=== PATIENT | female | born 1945 | race Two or more races ===

== ENCOUNTER 2024-04-23 12:40 | Inpatient (IN) | payer MEDICARE, MEDICAID ==
[~2024-04-23] VITALS: Ht 154.9 cm; Wt 77.4 kg
[2024-04-23 13:39] LABS: Basophils # (auto) 0.1 10 ^3/uL (0-0.2); Basophils % (auto) 0.8 % (0.0-2.0); Eosinophils # (auto) 0 10 ^3/uL (0-0.8); Eosinophils % (auto) 0.6 % (0.0-7.0); Hematocrit 38.8 % (36.0-46.0); Hemoglobin 13.2 g/dL (12.2-16.2); Lymphocytes # (auto) 2.6 10 ^3/uL (0.4-5.4); Lymphocytes % (auto) 34.9 % (10.0-50.0); Mean Corpuscular Hemoglobin 31.9 pg (28.0-32.0); Mean Corpuscular Hgb Conc. 33.9 g/dL (32.0-36.0); Mean Corpuscular Volume 94.1 fL (80.0-100.0); Monocytes # (auto) 0.3 10 ^3/uL (0-1.3); Monocytes % (auto) 3.4 % (0.0-12.0); Neutrophils # (auto) 4.5 10 ^3/uL (1.6-8.6); Neutrophils % (auto) 60.3 % (37.0-80.0); Nucleated Red Blood Cells % 0.1 %; Platelet Count (auto) 310 10^3/uL (140-450); Red Blood Cells 4.12 10^6/uL (4.0-5.20); Red Cell Distribution Width 14.5 % (11.8-14.3); White Blood Cell 7.5 10^3/uL (4.4-10.8)
[2024-04-23 13:53] LABS: Chloride 101 mmol/L (98-107); Potassium 4.3 mmol/L (3.5-5.1); Sodium 133 mmol/L (136-145)
[2024-04-23 13:54] LABS: Anion Gap 8 (5-15); Calcium 9.8 mg/dL (8.7-10.4); Carbon Dioxide 24 mmol/L (20-30)
[2024-04-23 13:59] LABS: BUN/Creatinine Ratio 15.6 (10.0-20.0); Blood Urea Nitrogen 21 mg/dL (9-23); Glucose 206 mg/dL (74-106)
[2024-04-23] MEDS: cloNIDine HCL 0.1 MG TAB PO ONE (16:06)
[2024-04-23] MEDS ORDERED: DOCUSATE SOD 100 MG CAP PO PRN (16:45)
[2024-04-23] MEDS ORDERED: ONDANSETRON HCL 4 MG/2 ML VIAL IV PRN (16:45)
[2024-04-23] MEDS ORDERED: ACETAMINOPHEN 325 MG TAB PO PRN (16:45)
[2024-04-23] MEDS ORDERED: NITROGLYCERIN 0.4 MG SL TAB SL PRN (16:45)
[2024-04-23] MEDS ORDERED: HYDROcodone-ACET 5/325MG TAB PO PRN (16:45)
[2024-04-23] MEDS ORDERED: MORPHINE SULFATE INJ 2 MG/ml SYRG IV PRN (16:45)
[2024-04-23] MEDS ORDERED: DICL75TA4 PO (16:49)
[2024-04-23] MEDS ORDERED: BACL10TA PO (16:49)
[2024-04-23] MEDS ORDERED: LISI10TA34 PO (16:49)
[2024-04-23] MEDS ORDERED: GABA-1250 PO (16:49)
[2024-04-23] MEDS ORDERED: DEXTROSE (50%) 50ML SYRG IV PRN (17:00)
[2024-04-23 17:09] LABS: Urine Bacteria None Seen /hpf (None Seen)
[2024-04-23 17:15] LABS: Urine Blood Negative /uL (Negative); Urine Clarity Clear (Clear); Urine Color Light-Yellow (Yellow); Urine Hyaline Cast FEW /lpf (0 - 2); Urine Mucus FEW (None Seen); Urine Protein, UAD Negative (Negative); Urine Specific Gravity 1.016 (1.001-1.035); Urine Urobilinogen Normal (Negative); Urine WBC 22 /hpf (0 - 5)
[2024-04-23] MEDS: ACCU-CHEK COMFORT CURVE STRIP VI SCH (18:48)
[2024-04-23] MEDS: InsuLIN REG 1unit/0.01ml Soln (100units/ml) SC SCH ×2 (18:48→22:00)
[2024-04-23 20:56] VITALS: PULSE 90; RESP 16; O2SAT 94
[2024-04-23] MEDS: GABAPENTIN 300 MG CAP PO SCH (22:00)
[2024-04-23] MEDS: DICLOFENAC SODIUM 75 MG PO SCH (22:00)
[2024-04-23] MEDS: BACLOFEN 10 MG TAB PO SCH (22:00)
[2024-04-24] VITALS (7 sets, daily range): BP systolic 92–161; BP diastolic 45–90; PULSE 68–82; RESP 16–18; TEMP 97–98.3; O2SAT 94–96
[2024-04-24 06:10] LABS: Basophils # (auto) 0.1 10 ^3/uL (0-0.2); Eosinophils # (auto) 0.1 10 ^3/uL (0-0.8); Eosinophils % (auto) 1.6 % (0.0-7.0); Hematocrit 36.7 % (36.0-46.0); Hemoglobin 12.5 g/dL (12.2-16.2); Lymphocytes # (auto) 2.9 10 ^3/uL (0.4-5.4); Lymphocytes % (auto) 40.2 % (10.0-50.0); Mean Corpuscular Hemoglobin 32.2 pg (28.0-32.0); Mean Corpuscular Hgb Conc. 34.1 g/dL (32.0-36.0); Mean Corpuscular Volume 94.5 fL (80.0-100.0); Monocytes # (auto) 0.5 10 ^3/uL (0-1.3); Monocytes % (auto) 6.9 % (0.0-12.0); Neutrophils # (auto) 3.6 10 ^3/uL (1.6-8.6); Neutrophils % (auto) 50.3 % (37.0-80.0); Nucleated Red Blood Cells % 0.1 %; Platelet Count (auto) 285 10^3/uL (140-450); Red Blood Cells 3.89 10^6/uL (4.0-5.20); Red Cell Distribution Width 14.3 % (11.8-14.3); White Blood Cell 7.2 10^3/uL (4.4-10.8)
[2024-04-24] MEDS: hydrALAZINE HCL 20 MG/ML VL IV PRN (06:25)
[2024-04-24 06:26] LABS: Alanine Aminotransferase 17 U/L (7-40); Albumin 3.8 g/dL (3.2-4.8); Alkaline Phosphatase 98 U/L (46-116); Anion Gap 6 (5-15); Aspartate Aminotransferase 16 U/L (13-40); BUN/Creatinine Ratio 19.3 (10.0-20.0); Blood Urea Nitrogen 21 mg/dL (9-23); Calcium 9.3 mg/dL (8.7-10.4); Carbon Dioxide 24 mmol/L (20-30); Chloride 104 mmol/L (98-107); Glucose 97 mg/dL (74-106); Potassium 4.2 mmol/L (3.5-5.1); Sodium 134 mmol/L (136-145)
[2024-04-24 06:27] LABS: Bilirubin, Total 0.3 mg/dL (0.2-1.0); Total Protein 6.1 g/dL (5.7-8.2)
[2024-04-24 09:41] LABS: Triglycerides 152 mg/dL (< 150)
[2024-04-24 09:42] LABS: LDL Cholesterol 95 mg/dL (< 100)
[2024-04-24 09:43] LABS: Cholesterol 193 mg/dL (< 200); HDL Cholesterol 71 mg/dL (40-59)
[2024-04-24 09:50] LABS: Amphetamine Screen, Urine Neg (NEGATIVE); Barbiturate Scree,Urine Neg (NEGATIVE); Benzodiazephine Screen, Urine Neg (NEGATIVE); Cannabinoid Screen, Urine Neg (NEGATIVE); Cocaine Screen, Urine Neg (NEGATIVE); Opiate Scree,Urine Neg (NEGATIVE); Phencyclidine Screen, Urine Neg (NEGATIVE)
[2024-04-24] MEDS: LISINOPRIL 5 MG TAB PO SCH (10:20)
[2024-04-24] MEDS: LISINOPRIL 5 MG TAB PO ONE (14:00)
[2024-04-24] MEDS ORDERED: LORazepam 2MG/ML-1ML VIAL IV ONE (14:00)
[2024-04-24] MEDS: DULoxetine HCL 30 MG CAP PO ONE (16:03)
[2024-04-24] MEDS: cefTRIAXone 1GM/50ML D5W 50 ML IV ONE (16:03)
[2024-04-24] MEDS: DULoxetine HCL 30 MG CAP PO SCH (21:33)
[2024-04-25 01:00] VITALS: BP 119/60; PULSE 85; RESP 18; TEMP 98.1; O2SAT 93
[2024-04-25 05:00] VITALS: BP 123/68; PULSE 79; RESP 18; TEMP 98.2; O2SAT 95
[2024-04-25 06:08] LABS: Anion Gap 7 (5-15); Calcium 9.5 mg/dL (8.7-10.4); Carbon Dioxide 23 mmol/L (20-30); Chloride 107 mmol/L (98-107); Potassium 4.9 mmol/L (3.5-5.1); Sodium 137 mmol/L (136-145)
[2024-04-25 06:15] LABS: BUN/Creatinine Ratio 14.9 (10.0-20.0); Blood Urea Nitrogen 14 mg/dL (9-23); Glucose 107 mg/dL (74-106)
[2024-04-25 06:57] LABS: Basophils # (auto) 0.1 10 ^3/uL (0-0.2); Basophils % (auto) 1.2 % (0.0-2.0); Eosinophils # (auto) 0.1 10 ^3/uL (0-0.8); Eosinophils % (auto) 1.2 % (0.0-7.0); Lymphocytes # (auto) 2.4 10 ^3/uL (0.4-5.4); Lymphocytes % (auto) 40.9 % (10.0-50.0); Mean Corpuscular Hemoglobin 32.6 pg (28.0-32.0); Mean Corpuscular Hgb Conc. 34.3 g/dL (32.0-36.0); Monocytes # (auto) 0.3 10 ^3/uL (0-1.3); Monocytes % (auto) 5.5 % (0.0-12.0); Neutrophils % (auto) 51.2 % (37.0-80.0); Nucleated Red Blood Cells % 0.1 %; Platelet Count (auto) 298 10^3/uL (140-450); Red Blood Cells 4.01 10^6/uL (4.0-5.20); Red Cell Distribution Width 14.4 % (11.8-14.3)
[2024-04-25 08:40] LABS: Erythrocyte Sedimentation Rate 4 mm/hr (0-20)
[2024-04-25 09:00] VITALS: BP 119/58; PULSE 78; RESP 16; TEMP 98; O2SAT 90
[2024-04-25] MEDS: cefTRIAXone 1GM/50ML D5W 50 ML IV SCH (09:50)
[2024-04-25] MEDS: LISINOPRIL 20 MG TAB PO SCH (09:51)
[2024-04-25 13:00] VITALS: BP 128/70; PULSE 74; RESP 17; TEMP 98.1; O2SAT 95
[2024-04-25 16:39] VITALS: BP 124/52
[2024-04-25 16:55] VITALS: BP 143/84; PULSE 89; RESP 16; TEMP 97.9; O2SAT 91
== END 2024-04-25 17:53 | disposition home or self-care (01) | DRG 304 ==
LOC: ER 12:40 → TELE 16:49 → TELE-WESTW 22:19 → WEST WING 04-24 17:08
PROVIDERS: ADMIT Nurse Practitioner Family; ATTEND Internal Medicine
DX: I16.0 Hypertensive urgency (principal); N17.0 Acute kidney failure with tubular necrosis; N39.0 Urinary tract infection, site not specified; M47.812 Spondylosis without myelopathy or radiculopathy, cervical region; R73.9 Hyperglycemia, unspecified; M79.7 Fibromyalgia; M06.9 Rheumatoid arthritis, unspecified; I10 Essential (primary) hypertension; E66.01 Morbid (severe) obesity due to excess calories; Z82.49 Family history of ischemic heart disease and other diseases of the circulatory system; Z68.32 Body mass index [BMI] 32.0-32.9, adult; Z90.710 Acquired absence of both cervix and uterus
CPT/HCPCS: 36415; 70450; 71045; 76775; 80048; 80053; 80061; 80307; 81001; 82306; 82607; 82962; 83036; 84484; 85025; 85652; 96372; G0378; J1815

== ENCOUNTER → 2024-10-29 | Outpatient (CLI) | payer MEDICARE, MEDICAID ==
[~2024-10-29] MED LIST: BACL10TA PO; DICL75TA4 PO; GABA-1250 PO; LISI10TA34 PO
[2024-10-29 15:43] LABS: LDL Cholesterol 98 mg/dL (< 100)
[2024-10-29 15:47] LABS: Cholesterol 218 mg/dL (< 200); HDL Cholesterol 87 mg/dL (40-59); Triglycerides 174 mg/dL (< 150)
== END | disposition home or self-care (01) ==
LOC: LAB 09:13
PROVIDERS: ATTEND Internal Medicine
DX: I10 Essential (primary) hypertension (principal); E55.9 Vitamin D deficiency, unspecified; R73.9 Hyperglycemia, unspecified; Z79.899 Other long term (current) drug therapy
CPT/HCPCS: 36415; 80061; 82306; 83036

== ENCOUNTER → 2024-11-15 | Outpatient (CLI) | payer MEDICARE, MEDICAID ==
[~2024-11-15] MED LIST changes: +ALL100T PO; +CHOLCAP4 PO; +COLC1CAP PO; +HYDR-4902 PO; +LACT10SO3 PO; +NIFE1TAB31 PO; +VENL1TAB99 PO
[2024-11-15 10:31] LABS: Basophils # (auto) 0.1 10 ^3/uL (0-0.2); Basophils % (auto) 1.3 % (0.0-2.0); Eosinophils # (auto) 0 10 ^3/uL (0-0.8); Eosinophils % (auto) 0.6 % (0.0-7.0); Hematocrit 41.4 % (36.0-46.0); Lymphocytes # (auto) 2.6 10 ^3/uL (0.4-5.4); Lymphocytes % (auto) 37.8 % (10.0-50.0); Mean Corpuscular Hemoglobin 31.4 pg (28.0-32.0); Mean Corpuscular Hgb Conc. 33.9 g/dL (32.0-36.0); Mean Corpuscular Volume 92.7 fL (80.0-100.0); Monocytes # (auto) 0.3 10 ^3/uL (0-1.3); Monocytes % (auto) 4.3 % (0.0-12.0); Neutrophils # (auto) 3.9 10 ^3/uL (1.6-8.6); Nucleated Red Blood Cells % 0.1 %; Platelet Count (auto) 272 10^3/uL (140-450); Red Blood Cells 4.47 10^6/uL (4.0-5.20); Red Cell Distribution Width 14.8 % (11.8-14.3); White Blood Cell 6.9 10^3/uL (4.4-10.8)
[2024-11-15 11:09] LABS: Erythrocyte Sedimentation Rate 8 mm/hr (0-20)
[2024-11-15 11:11] LABS: Alanine Aminotransferase 13 U/L (7-40); Alkaline Phosphatase 108 U/L (46-116); Anion Gap 5 (5-15); Aspartate Aminotransferase 20 U/L (13-40); BUN/Creatinine Ratio 14.6 (10.0-20.0); Blood Urea Nitrogen 18 mg/dL (9-23); CRP High Sensitivity 0.93 mg/dL (<1.0); Carbon Dioxide 24 mmol/L (20-31); GFR African American 55 mL/min; GFR Non-African American 45 mL/min; Potassium 4.8 mmol/L (3.5-5.1); Sodium 137 mmol/L (136-145); Total Protein 7.8 g/dL (5.7-8.2)
[2024-11-15 11:12] LABS: Albumin 4.9 g/dL (3.2-4.8); Bilirubin, Total 0.7 mg/dL (0.2-1.0); Calcium 10.6 mg/dL (8.7-10.4); Chloride 108 mmol/L (98-107); Glucose 109 mg/dL (74-106); Phosphorus 3.9 mg/dL (2.4-5.1)
[2024-11-15 12:41] LABS: Uric Acid 8.2 mg/dL (3.1-7.8)
[2024-11-16 08:07] LABS: Hepatitis B Core Total Antibod Negative (Negative)
[2024-11-18 10:29] LABS: Hepatitis A Ab IgM Negative; Hepatitis B Core IgM Negative (Negative); Hepatitis B Surface Antibody Negative (Negative); Hepatitis B Surface Antigen Negative (Negative); Hepatitis C Antibody Negative (Negative)
[2024-11-18 14:06] LABS: CCP IgG/IgA Antibody 5 units (0-19)
[2024-11-20 15:07] LABS: HLA B 27 Disease Association Negative (.)
== END | disposition home or self-care (01) ==
LOC: LAB 09:52
PROVIDERS: ATTEND Internal Medicine Rheumatology
DX: M06.9 Rheumatoid arthritis, unspecified (principal); L40.50 Arthropathic psoriasis, unspecified; E03.9 Hypothyroidism, unspecified; R53.83 Other fatigue; Z79.899 Other long term (current) drug therapy
CPT/HCPCS: 36415; 80053; 80069; 84443; 84550; 85025; 85652; 86141; 86200; 86705; 86706; 86709; 86803; 86812; 87340

== ENCOUNTER → 2025-01-11 | Day surgery (SDC) | payer MEDICARE, MEDICAID ==
[2025-01-09 15:53] LABS: Basophils # (auto) 0.1 10 ^3/uL (0-0.2); Eosinophils # (auto) 0 10 ^3/uL (0-0.8); Eosinophils % (auto) 0.6 % (0.0-7.0); Hematocrit 38.8 % (36.0-46.0); Hemoglobin 13.4 g/dL (12.2-16.2); Lymphocytes # (auto) 2.2 10 ^3/uL (0.4-5.4); Lymphocytes % (auto) 29.3 % (10.0-50.0); Mean Corpuscular Hemoglobin 31.8 pg (28.0-32.0); Mean Corpuscular Hgb Conc. 34.7 g/dL (32.0-36.0); Mean Corpuscular Volume 91.6 fL (80.0-100.0); Monocytes # (auto) 0.3 10 ^3/uL (0-1.3); Monocytes % (auto) 4.5 % (0.0-12.0); Neutrophils # (auto) 4.9 10 ^3/uL (1.6-8.6); Neutrophils % (auto) 64.6 % (37.0-80.0); Nucleated Red Blood Cells % 0.1 %; Platelet Count (auto) 295 10^3/uL (140-450); Red Blood Cells 4.23 10^6/uL (4.0-5.20); Red Cell Distribution Width 15.7 % (11.8-14.3); White Blood Cell 7.5 10^3/uL (4.4-10.8)
[2025-01-09 16:10] LABS: INR 0.91 (0.9-1.15); Partial Thromboplastin Time 27.1 SEC (24.5-34.5); Prothrombin Time 9.7 sec (9.3-11.8)
[2025-01-09 16:23] LABS: Alanine Aminotransferase 17 U/L (7-40); Albumin 4.7 g/dL (3.2-4.8); Alkaline Phosphatase 95 U/L (46-116); Anion Gap 8 (5-15); Aspartate Aminotransferase 15 U/L (13-40); BUN/Creatinine Ratio 27.7 (10.0-20.0); Calcium 10.3 mg/dL (8.7-10.4); Carbon Dioxide 25 mmol/L (20-31); Chloride 104 mmol/L (98-107); Sodium 137 mmol/L (136-145); Total Protein 7.3 g/dL (5.7-8.2)
[2025-01-09 16:24] LABS: Bilirubin, Total 0.4 mg/dL (0.2-1.0); Blood Urea Nitrogen 26 mg/dL (9-23); Glucose 107 mg/dL (74-106)
[~2025-01-11] VITALS: Ht 157.5 cm; Wt 75.7 kg
[~2025-01-11] MED LIST changes: -DICL75TA4 PO
[2025-01-11] MEDS: fentaNYL CITRATE 100 MCG/2 ML VL ONE (13:17)
[2025-01-11] MEDS: MIDAZOLAM HCL 2MG/2ML 2ml VIAL (1mg/ml) ONE (13:17)
--- NOTE | 2025-01-11 13:25 | DVHNC2 ---
Procedure - PROCEDURE DATE: JANUARY 11, 2025 PROCEDURE PERFORMED BY: Balwinder Gillespie MD REFERRING PROVIDER: Dr Jose Carlos Yu PROCEDURE PERFORMED: 1. ESOPHAGOGASTRODUODENOSCOPY WITH MODERATE SEDATION 2. ESOPHAGOGASTRODUODENOSCOPY WITH BIOPSY PRE-PROCEDURE DIAGNOSIS: 1. ABNORMAL IMAGING OF THE GI TRACT POSTPROCEDURE DIAGNOSIS: 1. MILD EROSIVE GASTRITIS 2. 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 HIATAL HERNIA 4. EROSIVE ESOPHAGITIS INDICATIONS FOR PROCEDURE: The patient is a 79-year-old female with CT scan showing abnormal imaging at the GE junction. EGD is warranted for evaluation. MEDICATIONS USED: 4mg of Versed and 50 mcg of the fentanyl IV was given in incremental doses DETAILS OF THE PROCEDURE: Informed consent was obtained after risks, benefits, and alternatives, were discussed at length with the patient. The patient gave consent to the procedure as well as some medication used for sedation. The patient was placed in the left lateral decubitus . An Olympus endoscope was inserted into the oropharynx advanced into the esophagus, then into the stomach, then into the duodenal bulb and duodenum. The scope was then withdrawn. The duodenal bulb and duodenum showed no abnormalities. The scope was then withdrawn. The stomach showed mild gastritis biopsies were taken of the body and antrum. Retroflexion showed a small amount of retained gastric contents. The patient had a small hiatal hernia the scope was then withdrawn. The Z-line was at 36 cm. The patient appeared to have a peptic stricture with narrowing of the GE junction. This likely corresponds to the findings on CT scan. There was no masses seen. Patient had erosive esophagitis. There was a 2 cm hiatal hernia seen. The scope was then withdrawn in the procedure completed the patient tolerated the procedure well IMPRESSION: 1. Erosive esophagitis and erosive gastritis 2. Small hiatal hernia 3. Peptic stricture at the GE junction versus ring, corresponding to abnormality seen on CT scan. No evidence of mass RECOMMENDATION: 1. Anti-reflux precautions 2. Proton pump inhibitor twice daily 30 minutes before breakfast and dinner 3. Consider further workup if the patient's symptoms persist or worsen 4. Consider repeat EGD if the patient has worsening dysphagia, food impaction, anemia or other 5. Follow up with me in clinic for procedure pathology results 6. Chew food thoroughly I WOULD LIKE TO THANK DR YU FOR THIS REFERRAL BALWINDER GILLESPIE MD January 11, 2025 13:25
[2025-01-11 13:40] VITALS: TEMP 98.1
[2025-01-11 14:17] VITALS: BP 128/75; PULSE 84; RESP 12; O2SAT 95
== END | disposition home or self-care (01) ==
LOC: GI 11:10
PROVIDERS: ATTEND Specialist
DX: R93.3 Abnormal findings on diagnostic imaging of other parts of digestive tract (principal); K44.9 Diaphragmatic hernia without obstruction or gangrene; K29.50 Unspecified chronic gastritis without bleeding; K21.00 Gastro-esophageal reflux disease with esophagitis, without bleeding; F32.A Depression, unspecified; F41.9 Anxiety disorder, unspecified; M19.90 Unspecified osteoarthritis, unspecified site; I10 Essential (primary) hypertension; K31.89 Other diseases of stomach and duodenum; Z98.890 Other specified postprocedural states; Z90.710 Acquired absence of both cervix and uterus; Z82.49 Family history of ischemic heart disease and other diseases of the circulatory system; Z79.899 Other long term (current) drug therapy
CPT/HCPCS: 36415; 43239; 80053; 85025; 85610; 85730; 88305; 88342; J2250; J3010

== ENCOUNTER → 2025-01-31 | Outpatient (CLI) | payer MEDICARE, MEDICAID ==
[2025-01-31 15:22] LABS: Folate (Folic Acid) 18.46 ng/mL (>5.38)
[2025-01-31 15:26] LABS: Erythrocyte Sedimentation Rate 11 mm/hr (0-20)
[2025-02-01 08:07] LABS: Complement C3 139 mg/dL (82-167); Rheumatoid Arthritis Factor 10.5 IU/mL (<14.0)
[2025-02-01 10:07] LABS: Anti-Nuclear Antibody Direct Negative (Negative); Anti-dsDNA Antibody 1 IU/mL (0-9); Antiscleroderma-70 Antibody <0.2 AI (0.0-0.9); RNP Antibody <0.2 AI (0.0-0.9); Sjogren's Anti-SS-A Antibody <0.2 AI (0.0-0.9); Sjogren's Anti-SS-B Antibody <0.2 AI (0.0-0.9); Smith Antibody <0.2 AI (0.0-0.9)
[2025-02-01 11:07] LABS: Thyroid Peroxidase (TPO) Ab 10 IU/mL (0-34)
[2025-02-03 17:07] LABS: Actin (Smooth Muscle) Antibody 10 Units (0-19); Mitochondrial (M2) Antibody <20.0 Units (0.0-20.0)
[2025-02-04 07:07] LABS: Antiparietal Cell Antibody 9.2 Units (0.0-20.0)
[2025-02-04 12:07] LABS: Anti-Striated Muscle Antibody Negative (Neg:<1:100)
== END | disposition home or self-care (01) ==
LOC: LAB 14:10
PROVIDERS: ATTEND Internal Medicine
DX: I10 Essential (primary) hypertension (principal); M17.0 Bilateral primary osteoarthritis of knee; E55.9 Vitamin D deficiency, unspecified; Z79.899 Other long term (current) drug therapy
CPT/HCPCS: 36415; 82607; 82746; 84443; 85652; 86141; 86160; 86225; 86235; 86376; 86431

== ENCOUNTER → 2025-07-03 | Outpatient (CLI) | payer MEDICARE, MEDICAID ==
[2025-07-03 10:18] LABS: Urine Protein, UAD Negative (Negative)
[2025-07-03 13:24] LABS: Microalb/Creat Ratio, Urine < 3.0
[2025-07-03 13:31] LABS: Cholesterol 182 mg/dL (< 200)
[2025-07-03 13:47] LABS: HDL Cholesterol 74 mg/dL (40-59); Triglycerides 151 mg/dL (< 150)
== END | disposition home or self-care (01) ==
LOC: LAB 09:27
PROVIDERS: ATTEND Internal Medicine
DX: R73.03 Prediabetes (principal); Z12.11 Encounter for screening for malignant neoplasm of colon; Z79.899 Other long term (current) drug therapy
CPT/HCPCS: 36415; 80061; 81001; 82043; 82570; 83036